=== PATIENT | male | born 2000 | race Caucasian/White ===

== ENCOUNTER 2023-12-28 01:20 | Emergency (ER) | payer SELFPAY ==
[2023-12-28 01:32] VITALS: BP 119/80; PULSE 69; RESP 18; TEMP 99.2; BMI 21.7
[2023-12-28] MEDS ORDERED: LIDOCAINE VISCOUS 2% ORAL/TOP 15 ML UNIT-DOSE CUP ONE (02:15)
[2023-12-28] MEDS: LIDOCAINE VISCOUS 2% ORAL/TOP 15 ML UNIT-DOSE CUP MM ONE (02:17)
== END 2023-12-28 02:20 | disposition home or self-care (01) ==
LOC: JER 01:20
DX: S01.511A Laceration without foreign body of lip, initial encounter (principal); Y04.0XXA Assault by unarmed brawl or fight, initial encounter
CPT/HCPCS: 99283-25